=== PATIENT | female | born 1985 | race Caucasian/White ===

== ENCOUNTER 2017-08-25 21:16 | Emergency (ER) | payer MEDICAID ==
[~2017-08-25] VITALS: Ht 157.5 cm; Wt 81.8 kg
[2017-08-25 21:28] VITALS: BP 127/70; PULSE 103; RESP 16; TEMP 98.6; O2SAT 98
[2017-08-25 21:44] VITALS: BP 139/68; PULSE 89; RESP 18; TEMP 98.9; O2SAT 100
[2017-08-25] MEDS ORDERED: SODIUM CHLOR 0.9% 1000 ML INJ 1,000 ML IV SCH (23:18)
[2017-08-25 23:27] VITALS: O2SAT 100
[2017-08-25] MEDS ORDERED: SODIUM CHLORIDE 0.9% FLUSH 10 ML FLUSH IV FLUSH PRN (23:30)
[2017-08-25] MEDS ORDERED: ONDANSETRON HCL 4 MG/2 ML VIAL IVP ONE (23:30)
[2017-08-25] MEDS ORDERED: ALUMINUM/MAGNESIUM/SIMETH 30 ML CUP PO ONE (23:30)
[2017-08-25] MEDS ORDERED: KETOROLAC TROMETHAMINE 30 MG/ML (IVP) VIAL IVP ONE (23:30)
[2017-08-25] MEDS ORDERED: ACETAMINOPHEN 325 MG TAB PO ONE (23:30)
[2017-08-25] MEDS ORDERED: LIDOCAINE VISCOUS 2% SOLN 15 ML UDC PO ONE (23:30)
[2017-08-25 23:52] LABS: BILIRUBIN, URINE NEG (NEG); BLOOD, URINE NEG (NEG); GLUCOSE,URINE NEG (NEG); KETONE, URINE NEG (NEG); NITRITE,URINE NEG (NEG); SQUAMOUS EPITHELIAL CELL URINE 1 /hpf (0-5); URINE COLOR LIGHT-YELLOW (YELLW/STRAW); URINE LEUKOCYTE ESTERASE NEG (NEG)
[2017-08-25 23:53] LABS: AUTOMATED NEUTROPHIL # 6.6 TH/MM3 (1.8-7.7); BASOPHIL # 0.2 TH/MM3 (0-0.2); BASOPHIL % 1.1 % (0.0-2.0); EOSINOPHIL # 0.4 TH/MM3 (0-0.4); HEMATOCRIT 39.7 % (35.0-46.0); HEMOGLOBIN 13.1 GM/DL (11.6-15.3); LYMPH % 42.4 % (9.0-44.0); MEAN CELL VOLUME 86.2 FL (80.0-100.0); MEAN CORPUSCULAR HEMOGLOBIN 28.3 PG (27.0-34.0); MEAN CORPUSCULAR HGB CONC 32.9 % (32.0-36.0); MEAN PLATELET VOLUME 7.7 FL (7.0-11.0); MONO % 7.1 % (0.0-8.0); NEUT % 46.4 % (16.0-70.0); PLATELET COUNT 420 TH/MM3 (150-450); RED BLOOD COUNT 4.61 MIL/MM3 (4.00-5.30); RED CELL DISTRIBUTION WIDTH 12.8 % (11.6-17.2); WHITE BLOOD COUNT 14.2 TH/MM3 (4.0-11.0)
[2017-08-26 00:12] LABS: ALBUMIN 3.6 GM/DL (3.4-5.0); AST (GOT) 14 U/L (15-37); BLOOD UREA NITROGEN 7 MG/DL (7-18); CALCIUM 8.7 MG/DL (8.5-10.1); CHLORIDE 106 MEQ/L (98-107); CREATININE 0.91 MG/DL (0.50-1.00); GLOMERULAR FILTRATION RATE 72 ML/MIN (>89); GLUCOSE,RANDOM 85 MG/DL (74-106); SODIUM (NA) 141 MEQ/L (136-145)
[2017-08-26 00:16] LABS: ALKALINE PHOSPHATASE 74 U/L (45-117); ALT (GPT) 13 U/L (10-53); TOTAL BILIRUBIN ADULT 0.2 MG/DL (0.2-1.0); TOTAL PROTEIN 7.1 GM/DL (6.4-8.2)
--- NOTE | 2017-08-26 01:02 | PD ---
HPI Chief Complaint: Abdominal Pain Time Seen by Provider: 23:18 Travel History International Travel<30 days: No Contact w/Intl Traveler<30days: No History of Present Illness HPI 32-year-old female arrives with complaints of abdominal pain for the past 2-3 days. The pain quality is sharp. She also reports eating earlier today and vomiting twice afterwards. She reports pain to be 10/10. Patient denies any modifying factor for her pain and reports it to involve the entire abdomen including the left flank. Patient reports last menstruation was approximately 1 month prior. Patient reports she is 3 para 1 and new in town. She denies abnormal vaginal bleeding or discharge. No history of STD. PFSH Past Medical History Anxiety: Yes Depression: Yes Tetanus Vaccination: > 5 Years Influenza Vaccination: No ?: Unknown LMP: mid 07/2017 : 3 Para: 1 Miscarriage: 2 Past Surgical History Surgical History: No Previous Surgery Social History Alcohol Use: Yes (OCC) Tobacco Use: Yes Substance Use: No Allergies-Medications (Allergen,Severity, Reaction): Coded Allergies: Sulfa (Sulfonamide Antibiotics) (Verified Allergy, Intermediate, 08/27/17) cephalexin (Verified Allergy, Intermediate, 08/27/17) ciprofloxacin (Verified Allergy, Intermediate, 08/27/17) headache and hives sulfamethoxazole (Verified Allergy, Intermediate, 08/27/17) trimethoprim (Verified Allergy, Intermediate, 08/27/17) Reported Meds & Prescriptions Reported Meds & Active Scripts Active ( Vit-Ferrous Fumarate) 27 Mg Iron-1 Mg Tab 1 Tab PO DAILY Reglan (Metoclopramide HCl) 10 Mg Tab 10 Mg PO TIDAC PRN Review of Systems Except as stated in HPI: all other systems reviewed are Neg General / Constitutional: No: Fever Physical Exam Narrative GENERAL: 32-year-old female no acute distress pleasant well-nourished well- developed Vital Signs Date Time Temp Pulse Resp B/P (MAP) Pulse Ox O2 Delivery O2 Flow Rate FiO2 08/25/17 23:27 100 Room Air 08/25/17 23:12 18 08/25/17 21:44 98.9 89 18 139/68 (91) 100 SKIN: Warm and dry. HEAD: Atraumatic. Normocephalic. EYES: Pupils equal and round. No scleral icterus. No injection or drainage. ENT: No nasal bleeding or discharge. Mucous membranes pink and moist. NECK: Trachea midline. No JVD. CARDIOVASCULAR: Regular rate and rhythm. RESPIRATORY: No accessory muscle use. Clear to auscultation. Breath sounds equal bilaterally. GASTROINTESTINAL: Abdomen soft. There is no focus of tenderness. MUSCULOSKELETAL: Extremities without clubbing, cyanosis, or edema. No obvious deformities. NEUROLOGICAL: Awake and alert. No obvious cranial nerve deficits. Motor grossly within normal limits. Five out of 5 muscle strength in the arms and legs. Normal speech. PSYCHIATRIC: Appropriate mood and affect; insight and judgment normal. Data Data Last Documented VS Vital signs reviewed Orders Orders Complete Blood Count With Diff (08/25/17 23:18) Comprehensive Metabolic Panel (08/25/17:18) Lipase (08/25/17:) Urinalysis - C+S If Indicated (08/25/17:18) Iv Access Insert/Monitor (08/25/17 23:18) Ecg Monitoring (08/25/17:18) Oximetry (08/25/17:) Ondansetron Inj (Zofran Inj) (08/25/17 23:30) Sodium Chlor 0.9% 1000 Ml Inj (Ns 1000 M (08/25/17 23:18) Sodium Chloride 0.9% Flush (Ns Flush) (08/25/17 23:30) Ketorolac Inj (Toradol Inj) (08/25/17 23:30) Al-Mag Hy-Si 40-40-4 Mg/Ml Liq (Mag-Al P (08/25/17 23:30) Lidocaine 2% Viscous (Xylocaine 2% Visco (08/25/17 23:30) Ed Urine Pregnancytest Poc (08/25/17 23:18) Gc And Chlamydia Pcr (08/25/17 23:29) Wet Prep Profile (08/25/17 23:29) Complete Rh (08/25/17 23:29) Acetaminophen (Tylenol) (08/25/17 23:30) Beta Hcg (Quant/Titer) (08/25/17 23:28) Us Pelvis (Ques Pr/Ect)W Trans (08/26/17 ) Mri Abdomen W/O Contrast (08/26/17 ) Morphine Inj (Morphine Inj) (08/26/17 03:00) Ed Discharge Order (08/26/17 04:49) Labs Laboratory Tests Test 08/25/17 23:28 08/25/17 23:35 08/26/17 00:07 White Blood Count 14.2 TH/MM3 Red Blood Count 4.61 MIL/MM3 Hemoglobin 13.1 GM/DL Hematocrit 39.7 % Mean Corpuscular Volume 86.2 FL Mean Corpuscular Hemoglobin 28.3 PG Mean Corpuscular Hemoglobin Concent 32.9 % Red Cell Distribution Width 12.8 % Platelet Count 420 TH/MM3 Mean Platelet Volume 7.7 FL Neutrophils (%) (Auto) 46.4 % Lymphocytes (%) (Auto) 42.4 % Monocytes (%) (Auto) 7.1 % Eosinophils (%) (Auto) 3.0 % Basophils (%) (Auto) 1.1 % Neutrophils # (Auto) 6.6 TH/MM3 Lymphocytes # (Auto) 6.0 TH/MM3 Monocytes # (Auto) 1.0 TH/MM3 Eosinophils # (Auto) 0.4 TH/MM3 Basophils # (Auto) 0.2 TH/MM3 CBC Comment AUTO DIFF Differential Total Cells Counted 100 Neutrophils % (Manual) 48 % Band Neutrophils % 9 % Lymphocytes % 36 % Monocytes % 2 % Eosinophils % 5 % Neutrophils # (Manual) 8.1 TH/MM3 Differential Comment FINAL DIFF MANUAL Platelet Estimate NORMAL Platelet Morphology Comment NORMAL Red Cell Morphology Comment NORMAL Blood Urea Nitrogen 7 MG/DL Creatinine 0.91 MG/DL Random Glucose 85 MG/DL Total Protein 7.1 GM/DL Albumin 3.6 GM/DL Calcium Level 8.7 MG/DL Alkaline Phosphatase 74 U/L Aspartate Amino Transf (AST/SGOT) 14 U/L Alanine Aminotransferase (ALT/SGPT) 13 U/L Total Bilirubin 0.2 MG/DL Sodium Level 141 MEQ/L Potassium Level 3.5 MEQ/L Chloride Level 106 MEQ/L Carbon Dioxide Level 27.0 MEQ/L Anion Gap 8 MEQ/L Estimat Glomerular Filtration Rate 72 ML/MIN Lipase 174 U/L Human Chorionic Gonadotropin, Quant 207 MIU/ML Urine Color LIGHT-YELLOW Urine Turbidity CLEAR Urine pH 6.0 Urine Specific [place] 1.007 Urine Protein NEG mg/dL Urine Glucose (UA) NEG mg/dL Urine Ketones NEG mg/dL Urine Occult Blood NEG Urine Nitrite NEG Urine Bilirubin NEG Urine Urobilinogen LESS THAN 2.0 MG/DL Urine Leukocyte Esterase NEG Urine RBC LESS THAN 1 /hpf Urine WBC 1 /hpf Urine Squamous Epithelial Cells 1 /hpf Microscopic Urinalysis Comment CULT NOT INDICATED Clue Cells (Wet Prep) NONE SEEN Vaginal Trichomonas (Wet Prep) NONE SEEN Vaginal Yeast (Wet Prep) NONE SEEN Chlamydia trachomatis DNA (PCR) NOT DETECTED Neisseria gonorrhoeae DNA (PCR) NOT DETECTED MDM Medical Decision Making Medical Screen Exam Complete: Yes Emergency Medical Condition: Yes Medical Record Reviewed: Yes Differential Diagnosis IUP, UTI, ectopic , ov torsion, appendicitis, TOA, cervicitis, BV, Trichomoniasis, ov cyst, hernia, mittelschmerz, pain from menstruation Narrative Course Last Impressions Pelvis Ultrasound 08/26/17 0000 Signed Impressions: Service Date/Time: Saturday, August 26, 2017 00:09 - CONCLUSION: 1. Endometrial stripe is thickened but no gestational sac identified. 6 mm cystic area in the lower uterine segment could represent the aborting gestational sac although, with the extremely low quantitative beta hCG, an early still cannot be excluded. Recommend following serial hCG. 2. Ovaries are sonographically normal. Trace free fluid in the cul-de-sac. Solo Roberts MD Abdomen MRI 08/26/17 0000 Signed Impressions: Service Date/Time: Saturday, August 26, 2017 03:33 - CONCLUSION: Negative exam. No acute intraperitoneal or pelvic process to explain current clinical symptoms. Solo Roberts MD CBC & BMP Diagram 08/25/17 23:28 Total Protein 7.1, Albumin 3.6, Calcium Level 8.7, Alkaline Phosphatase 74, Aspartate Amino Transf (AST/SGOT) 14 L, Alanine Aminotransferase (ALT/SGPT) 13, Total Bilirubin 0.2 Urinalysis shows no UTI The wet prep is negative GC chlamydia is negative The patient has 9% bandemia which although could be nonspecific is concerning for infectious process. Given the presence of a elevated beta hCG MRI of the abdomen was obtained and it reveals no acute infectious/inflammatory process. Patient was observed ambulating to the bathroom a reassuring sign. Scrips as below. Return precautions discussed. Follow up with Dr Blackburn. Diagnosis Primary Impression: IUP (intrauterine ), incidental Additional Impression: Nausea & vomiting Qualified Codes: R11.2 - Nausea with vomiting, unspecified Referrals: Maximino Blackburn MD Med/Other Pt SpecificInfo: Prescription(s) given Scripts Vit-Ferrous Fumarate () 27 Mg Iron-1 Mg Tab 1 TAB PO DAILY for Nutritional Supplement, #30 TAB 2 Refills Prov: Alexi Bryson MD 08/26/17 Metoclopramide (Reglan) 10 Mg Tab 10 MG PO TIDAC Y for NAUSEA OR VOMITING, #10 TAB 0 Refills Prov: Alexi Bryson MD 08/26/17 Disposition: 01 DISCHARGE HOME Condition: Stable Alexi Bryson MD Aug 26, 2017 01:02
--- NOTE | 2017-08-26 01:22 | RADRPT ---
EXAM DATE/TIME: 08/26/2017 00:09 [facility] COMPARISON: No previous studies available for comparison. INDICATIONS : Pelvic pain. LAB(S): Beta-hC MEDICAL HISTORY : Depression. Anxiety. SURGICAL HISTORY : ENCOUNTER: Initial ACUITY: 3 days PAIN SCORE: 8/10 LOCATION: Bilateral pelvis MEASUREMENTS: UTERUS: 7.5 x 5.5 x 4.0 cm ENDOMETRIAL STRIPE: 14 mm RIGHT OVARY: 3.4 x 3.1 x 2.0 cm LEFT OVARY: 2.8 x 1.9 x 1.6 cm FREE FLUID: Yes trace in cul de sac FINDINGS: UTERUS: The myometrium has homogeneous echotexture without mass. Endometrial stripe is prominent but there i s no discrete gestational sac identified. A 6 mm cystic area in the lower uterine segment could repre sent the aborting gestational sac, however. No pole identified RIGHT OVARY: Ovary contains no mass or significant cystic lesion. 8mm cyst in the lower pole of the ovary. LEFT OVARY: Ovary contains no mass or significant cystic lesion. MISCELLANEOUS: Trace free fluid in the cul-de-sac. CONCLUSION: 1. Endometrial stripe is thickened but no gestational sac identified. 6 mm cystic area in the lower u terine segment could represent the aborting gestational sac although, with the extremely low quantita tive beta hCG, an early still cannot be excluded. Recommend following serial hCG. 2. Ovaries are sonographically normal. Trace free fluid in the cul-de-sac. Solo Roberts MD on August 26, 2017 at 1:16 Board Certified Radiologist. This report was verified electronically.
[2017-08-26 01:25] LABS: BANDS 9 % (0-6); LYMPHOCYTES 36 % (9-44); MONOCYTES 2 % (0-8); NEUTROPHIL # MANUAL DIFF 8.1 TH/MM3 (1.8-7.7); POLYS (SEG NEUTROPHILS) 48 % (16-70)
[2017-08-26] MEDS ORDERED: MORPHINE SULFATE 4 MG/ML INJ IV PUSH ONE (03:00)
--- NOTE | 2017-08-26 04:38 | RADRPT ---
EXAM DATE/TIME: 08/26/2017 03:33 [facility] COMPARISON: No previous studies available for comparison. INDICATIONS : Abdominal pain. Left side. MEDICAL HISTORY : None. SURGICAL HISTORY : None. ENCOUNTER: Subsequent ACUITY: 2 day PAIN SCORE: 4/10 LOCATION: Left abdomen TECHNIQUE: Multiplanar, multisequence magnetic resonance imaging of the abdomen was performed without contrast. FINDINGS: LIVER: Normal size with normal signal intensity. No lesion is identified. Portal vein is within normal limi ts. BILIARY: There is no intra- or extra-hepatic biliary ductal dilatation. Gallbladder contains no stones. SPLEEN: Within normal limits. PANCREAS: Within normal limits. ADRENALS: Within normal limits. KIDNEYS: Normal size and signal intensity. There is no hydronephrosis or mass. OTHER: Aorta is nonaneurysmal. There is no lymphadenopathy. Vermiform appendix is identified and is radiogra phically normal. CONCLUSION: Negative exam. No acute intraperitoneal or pelvic process to explain current clinical symptoms. Solo Roberts MD on August 26, 2017 at 4:32 Board Certified Radiologist. This report was verified electronically.
[2017-08-26] MEDS ORDERED: TRICTAB PO (04:48)
[2017-08-26] MEDS ORDERED: REGL10TA5 PO (04:48)
[2017-08-26 05:16] VITALS: BP 128/58; PULSE 78; RESP 18; O2SAT 100
== END 2017-08-26 05:17 | disposition home or self-care (01) ==
LOC: NEPC 21:16
DX: O21.9 Vomiting of pregnancy, unspecified (principal); R10.9 Unspecified abdominal pain; O99.341 Other mental disorders complicating pregnancy, first trimester; F41.9 Anxiety disorder, unspecified; F32.9 Major depressive disorder, single episode, unspecified; O99.331 Smoking (tobacco) complicating pregnancy, first trimester; F17.210 Nicotine dependence, cigarettes, uncomplicated; Z79.899 Other long term (current) drug therapy; Z34.91 Encounter for supervision of normal pregnancy, unspecified, first trimester
CPT/HCPCS: 74181; 76700; 76817; 80053; 81001; 83690; 84702; 84703; 85007; 85027; 86901; 87210; 87491; 87591; 96374; 96375; 99285; J2270; J2405; J7030

== ENCOUNTER 2017-08-27 20:42 | Emergency (ER) | payer MEDICAID ==
[~2017-08-27] VITALS: Ht 162.6 cm; Wt 79.0 kg
[~2017-08-27 20:42] MED LIST: REGL10TA5 PO; TRICTAB PO
[2017-08-27 21:33] VITALS: BP 123/60; PULSE 68; RESP 16; TEMP 99.2; O2SAT 99
--- NOTE | 2017-08-27 23:20 | PD ---
HPI Chief Complaint: Medical Clearance Time Seen by Provider: 22:14 Travel History International Travel<30 days: No Contact w/Intl Traveler<30days: No Traveled to known affect area: No History of Present Illness HPI This is a 32-year-old female who was called back to our emergency department today for reevaluation of early . The patient presented to the emergency department 2 days ago complaining of abdominal pain, and incidentally her beta hCG was elevated at 203. Because of this and because she was complaining of abdominal pain, an MRI of her abdomen was performed at that time that showed no acute abnormality. She had a pelvic ultrasound also at that time that showed thickened endometrial stripe and a 6 mm cystic area in the lower uterine segment that could represent an boarding gestational sac although with extremely low quantitative beta-hCG, and early still cannot be excluded. The ovaries on this ultrasound were sonographically normal. Patient is still having lower abdominal/suprapubic discomfort. 2 days ago she had a wet prep that was completely negative, GC and chlamydia were tested and were negative, and her UA was also within normal limits. PFSH Past Medical History Anxiety: Yes Depression: Yes Immunizations Current: Yes Tetanus Vaccination: Unknown Influenza Vaccination: No ?: : 3 Para: 1 Miscarriage: 2 Social History Alcohol Use: Yes (OCC) Tobacco Use: Yes Substance Use: No Allergies-Medications (Allergen,Severity, Reaction): Coded Allergies: Sulfa (Sulfonamide Antibiotics) (Verified Allergy, Intermediate, 08/27/17) cephalexin (Verified Allergy, Intermediate, 08/27/17) ciprofloxacin (Verified Allergy, Intermediate, 08/27/17) headache and hives sulfamethoxazole (Verified Allergy, Intermediate, 08/27/17) trimethoprim (Verified Allergy, Intermediate, 08/27/17) Reported Meds & Prescriptions Reported Meds & Active Scripts Active ( Vit-Ferrous Fumarate) 27 Mg Iron-1 Mg Tab 1 Tab PO DAILY Reglan (Metoclopramide HCl) 10 Mg Tab 10 Mg PO TIDAC PRN Review of Systems Except as stated in HPI: all other systems reviewed are Neg Physical Exam Narrative GENERAL: Well-developed, well-nourished, comfortable, no apparent distress. SKIN: Focused skin assessment warm/dry. HEAD: Atraumatic. Normocephalic. EYES: Pupils equal and round. No scleral icterus. No injection or drainage. ENT: Mucous membranes pink and moist. NECK: Trachea midline. No JVD. CARDIOVASCULAR: Regular rate and rhythm. RESPIRATORY: No accessory muscle use. Clear to auscultation. Breath sounds equal bilaterally. GASTROINTESTINAL: Abdomen soft, nondistended. Mild suprapubic tenderness without peritoneal signs. Normal bowel sounds. MUSCULOSKELETAL: No obvious deformities. No clubbing. No cyanosis. No edema. NEUROLOGICAL: Awake and alert. No obvious cranial nerve deficits. Motor grossly within normal limits. Normal speech. PSYCHIATRIC: Appropriate mood and affect; insight and judgment normal. Data Data Last Documented VS Vital Signs Date Time Temp Pulse Resp B/P (MAP) Pulse Ox O2 Delivery O2 Flow Rate FiO2 08/27/17 21:33 99.2 68 16 123/60 (81) 99 Orders Orders Beta Hcg (Quant/Titer) (08/27/17 21:04) Us Pelvis (Ques Preg/Ectopic) (08/27/17 ) Labs Laboratory Tests Test 08/27/17 22:00 Human Chorionic Gonadotropin, Quant 552 MIU/ML [facility] Medical Decision Making Medical Screen Exam Complete: Yes Emergency Medical Condition: Yes Differential Diagnosis , ectopic , spontaneous Narrative Course Patient's beta-hCG today is 552. 2 days ago it was 207. It is doubling appropriately. She is not having any vaginal bleeding. At this point she will be discharged home and advised to have her beta hCG repeated in about 3 days. There are no peritoneal signs on abdominal exam. She was advised on when to return to the emergency department sooner. She verbalizes understanding and agreement with plan. Diagnosis Primary Impression: Early stage of Referrals: [facility] 3 days Additional Instructions: Follow-up with an AC/DC REWINDER physician this week. Have your beta hCG repeated in 3 days. Return to the emergency department for worsening symptoms or any other concerns. Disposition: DISCHARGE HOME Condition: Stable Justin Mckeon MD Aug 27, 2017 23:20
== END 2017-08-28 00:11 | disposition home or self-care (01) ==
LOC: NEPD 20:42
DX: O26.891 Other specified pregnancy related conditions, first trimester (principal); R10.9 Unspecified abdominal pain; O99.331 Smoking (tobacco) complicating pregnancy, first trimester; O99.341 Other mental disorders complicating pregnancy, first trimester; F41.9 Anxiety disorder, unspecified; F32.9 Major depressive disorder, single episode, unspecified
CPT/HCPCS: 84702; 99283

== ENCOUNTER 2017-08-30 12:21 | Emergency (ER) | payer MEDICAID ==
[2017-08-30 13:01] VITALS: BP 120/75; PULSE 79; RESP 14; TEMP 99.2; O2SAT 99
--- NOTE | 2017-08-30 15:36 | PD ---
HPI Chief Complaint: Abnormal Results Time Seen by Provider: 14:58 Travel History International Travel<30 days: No Contact w/Intl Traveler<30days: No Traveled to known affect area: No History of Present Illness HPI 32-year-old female presents to the ED for repeat hCG. Patient was seen on 08/26 and ultrasound of the pelvis revealed a questionable early . She had hCG drawn on 08/27, level was 552. On presentation she complains of cramping left back pain. She denies vaginal bleeding, abdominal pain, dysuria, hematuria. She has no other complaints. PFSH Past Medical History Anxiety: Yes Depression: Yes Immunizations Current: Yes ?: : 3 Para: 1 Miscarriage: 2 Social History Alcohol Use: Yes (OCC) Tobacco Use: Yes Substance Use: No Allergies-Medications (Allergen,Severity, Reaction): Coded Allergies: Sulfa (Sulfonamide Antibiotics) (Verified Allergy, Intermediate, 08/27/17) cephalexin (Verified Allergy, Intermediate, 08/27/17) ciprofloxacin (Verified Allergy, Intermediate, 08/27/17) headache and hives sulfamethoxazole (Verified Allergy, Intermediate, 08/27/17) trimethoprim (Verified Allergy, Intermediate, 08/27/17) Reported Meds & Prescriptions Reported Meds & Active Scripts Active ( Vit-Ferrous Fumarate) 27 Mg Iron-1 Mg Tab 1 Tab PO DAILY Reglan (Metoclopramide HCl) 10 Mg Tab 10 Mg PO TIDAC PRN Review of Systems Except as stated in HPI: all other systems reviewed are Neg Physical Exam Narrative GENERAL: Well-nourished, well-developed female in no acute distress.. SKIN: Focused skin assessment warm/dry. HEAD: Normocephalic. EYES: No scleral icterus. No injection or drainage. NECK: Supple, trachea midline. No JVD or lymphadenopathy. CARDIOVASCULAR: Regular rate and rhythm without murmurs, gallops, or rubs. RESPIRATORY: Breath sounds equal bilaterally. No accessory muscle use. GASTROINTESTINAL: Abdomen soft, non-tender, nondistended. Active bowel sounds. MUSCULOSKELETAL: No cyanosis, or edema. BACK: Nontender without obvious deformity. No CVA tenderness. Data Data Last Documented VS Vital Signs Date Time Temp Pulse Resp B/P (MAP) Pulse Ox O2 Delivery O2 Flow Rate FiO2 08/30/17 13:01 99.2 79 14 120/75 (90 99 Orders Orders Beta Hcg (Quant/Titer) (08/30/17 13:11) Ed Discharge Order (08/30/17 16:07) Labs Laboratory Tests Test 08/30/17 14:12 Human Chorionic Gonadotropin, Quant 1368 MIU/ML MDM Medical Decision Making Medical Screen Exam Complete: Yes Emergency Medical Condition: Yes Differential Diagnosis Early versus miscarriage versus ECG recheck versus other Narrative Course 32-year-old female presents to the ED for repeat hCG. Patient was seen on 08/26 and ultrasound of the pelvis revealed a questionable early . She had hCG drawn on 08/27, level was 552. On presentation she complains of cramping left back pain. She denies vaginal bleeding, abdominal pain, dysuria, hematuria. Vitals reviewed. Physical exam is reassuring. ECG to 1368. UA on 08/27 without signs of infection. This is early . Patient's instructed to follow-up with the seam rubbing machine operator. She is stable and discharged home. Diagnosis Primary Impression: First trimester Referrals: Furnace Operator Additional Instructions: Beta hCG is 1368 today. Begin taking vitamins. Help with the seam rubbing machine operator to establish care and determine due to date. Return to the ED for any urgent or emergent medical condition. Disposition: 01 DISCHARGE HOME Condition: Stable Roselyn Frost Aug 30, 2017 15:36
--- NOTE | 2017-08-30 16:39 | ED.CB ---
ED Call Back Communication Called patient to talk with patient to review her symptoms and prior ultrasound as she had left when I was reviewing her chart. Her level is going up on her ultrasound 4 days ago showed likely beginnings of early . I recommended that she get repeat ultrasound imaging and closely to confirm progression of her . I offered her to return to the ER for additional testing given she said over the phone that she still having urinary symptoms and her temp here was 99.2. She states she wants to just try to follow-up outpatient and if she gets worse she will come back. Sadie Mccullough MD Aug 30, 2017 16:39
== END 2017-08-30 16:14 | disposition home or self-care (01) ==
LOC: NED 12:21 → NEPK 16:14
DX: O26.891 Other specified pregnancy related conditions, first trimester (principal); M54.9 Dorsalgia, unspecified; Z3A.00 Weeks of gestation of pregnancy not specified
CPT/HCPCS: 84702; 99281

== ENCOUNTER 2017-09-19 16:11 | Emergency (ER) | payer MEDICAID, OTHER ==
[~2017-09-19] VITALS: Ht 157.5 cm; Wt 83.2 kg
[2017-09-19 21:43] LABS: BACTERIA, URINE RARE /hpf; BILIRUBIN, URINE NEG (NEG); BLOOD, URINE NEG (NEG); GLUCOSE,URINE NEG (NEG); KETONE, URINE NEG (NEG); NITRITE,URINE NEG (NEG); PH, URINE 6.5 (5.0-8.5); SQUAMOUS EPITHELIAL CELL URINE 3 /hpf (0-5); URINE COLOR YELLOW (YELLW/STRAW); URINE LEUKOCYTE ESTERASE SMALL (NEG)
--- NOTE | 2017-09-19 22:00 | PD ---
HPI Chief Complaint: Flank/Kidney Pain Time Seen by Provider: 21:46 Travel History International Travel<30 days: No Contact w/Intl Traveler<30days: No Traveled to known affect area: No History of Present Illness HPI This is a 32-year-old who has an estimated gestational age of 7 weeks. She presents for evaluation of left flank and left lower quadrant abdominal pain. She reports that for the past 1.5 week she has had pain in her left flank region. She was seen at an outside emergency room 1 week ago where she was diagnosed with UTI and prescribed Macrobid. She has completed the Macrobid and has persistent pain. She reports that now the pain radiates in the left lower quadrant. Pain is sharp and constant. She has had some associated dysuria. She reports that today she developed some yellow vaginal discharge. She has had nausea. Denies vomiting, vaginal bleeding, fevers. She has not yet established care with an SHOPPING CENTRE MANAGER. She reports that she is sexually active with one long-term partner. She has no other complaints at this time. [facility] Past Medical History Anxiety: Yes Depression: Yes Immunizations Current: Yes ?: : 3 Para: 1 Miscarriage: 2 Social History Alcohol Use: Yes (OCC) Tobacco Use: No Substance Use: No Allergies-Medications (Allergen,Severity, Reaction): Coded Allergies: Sulfa (Sulfonamide Antibiotics) (Verified Allergy, Intermediate, 09/19/17) cephalexin (Verified Allergy, Intermediate, 09/19/17) ciprofloxacin (Verified Allergy, Intermediate, 09/19/17) headache and hives sulfamethoxazole (Verified Allergy, Intermediate, 09/19/17) trimethoprim (Verified Allergy, Intermediate, 09/19/17) Reported Meds & Prescriptions Reported Meds & Active Scripts Active Lidocaine Patch 12 HR (Lidocaine) 5 % Patch 1 Patch TOPICAL DAILY Remove patch after 12 hours Macrobid (Nitrofurantoin Monohydrate Macrocrystals) 100 Mg Capsule 100 Mg PO BID 7 Days ( Vit-Ferrous Fumarate) 27 Mg Iron-1 Mg Tab 1 Tab PO DAILY Review of Systems Except as stated in HPI: all other systems reviewed are Neg Physical Exam Narrative GENERAL: Well-developed well-nourished female who appears uncomfortable on initial examination. SKIN: Warm and dry. HEAD: Atraumatic. Normocephalic. EYES: Pupils equal and round. No scleral icterus. No injection or drainage. ENT: No nasal bleeding or discharge. Mucous membranes pink and moist. NECK: Trachea midline. No JVD. CARDIOVASCULAR: Regular rate and rhythm. No murmur appreciated. RESPIRATORY: No accessory muscle use. Clear to auscultation. Breath sounds equal bilaterally. GASTROINTESTINAL: Abdomen soft, mild left lower quadrant tenderness without guarding. Tender to palpation left lower back region. Pelvic examination in the presence of a female nurse reveals small amount of yellow discharge in the vaginal canal. There is no cervical motion tenderness. There is mild left adnexal tenderness. MUSCULOSKELETAL: No obvious deformities. No clubbing. No cyanosis. No edema. NEUROLOGICAL: Awake and alert. No obvious cranial nerve deficits. Motor grossly within normal limits. Normal speech. Data Data Last Documented VS Vital Signs Date Time Temp Pulse Resp B/P (MAP) Pulse Ox O2 Delivery O2 Flow Rate FiO2 09/19/17 22:24 98.5 84 18 118/64 (82) 99 Room Air Orders Orders Comprehensive Metabolic Panel (09/19/17 17:05) Urinalysis - C+S If Indicated (09/19/17 17:05) Ed Urine Pregnancytest Poc (09/19/17 17:05) Beta Hcg (Quant/Titer) (09/19/17 17:05) Complete Blood Count With Diff (09/19/17 21:52) Gc And Chlamydia Pcr (09/19/17 21:55) Wet Prep Profile (09/19/17 21:55) Acetaminophen (Tylenol) (09/19/17 22:45) Ed Discharge Order (09/19/17 22:52) Lidocaine 5% Patch.12 Hr (Lidoderm 5% Pa (09/19/17 23:00) Labs Laboratory Tests Test 09/19/17 19:10 09/19/17 21:50 09/19/17 22:35 Urine Color YELLOW Urine Turbidity CLEAR Urine pH 6.5 Urine Specific [place] 1.006 Urine Protein NEG mg/dL Urine Glucose (UA) NEG mg/dL Urine Ketones NEG mg/dL Urine Occult Blood NEG Urine Nitrite NEG Urine Bilirubin NEG Urine Urobilinogen LESS THAN 2.0 MG/DL Urine Leukocyte Esterase SMALL Urine RBC 1 /hpf Urine WBC 2 /hpf Urine Squamous Epithelial Cells 3 /hpf Urine Bacteria RARE /hpf Microscopic Urinalysis Comment CULT NOT INDICATED White Blood Count 16.2 TH/MM3 Red Blood Count 4.31 MIL/MM3 Hemoglobin 12.3 GM/DL Hematocrit 37.2 % Mean Corpuscular Volume 86.2 FL Mean Corpuscular Hemoglobin 28.5 PG Mean Corpuscular Hemoglobin Concent 33.0 % Red Cell Distribution Width 12.6 % Platelet Count 384 TH/MM3 Mean Platelet Volume 7.8 FL Neutrophils (%) (Auto) 59.2 % Lymphocytes (%) (Auto) 31.0 % Monocytes (%) (Auto) 6.6 % Eosinophils (%) (Auto) 2.3 % Basophils (%) (Auto) 0.9 % Neutrophils # (Auto) 9.6 TH/MM3 Lymphocytes # (Auto) 5.0 TH/MM3 Monocytes # (Auto) 1.1 TH/MM3 Eosinophils # (Auto) 0.4 TH/MM3 Basophils # (Auto) 0.1 TH/MM3 CBC Comment DIFF FINAL Differential Comment Blood Urea Nitrogen 5 MG/DL Creatinine 0.65 MG/DL Random Glucose 82 MG/DL Total Protein 7.1 GM/DL Albumin 3.5 GM/DL Calcium Level 8.8 MG/DL Alkaline Phosphatase 63 U/L Aspartate Amino Transf (AST/SGOT) 12 U/L Alanine Aminotransferase (ALT/SGPT) 16 U/L Total Bilirubin 0.6 MG/DL Sodium Level 137 MEQ/L Potassium Level 3.9 MEQ/L Chloride Level 104 MEQ/L Carbon Dioxide Level 25.6 MEQ/L Anion Gap 7 MEQ/L Estimat Glomerular Filtration Rate 106 ML/MIN Human Chorionic Gonadotropin, Quant 06914 MIU/ML Clue Cells (Wet Prep) NONE SEEN Vaginal Trichomonas (Wet Prep) NONE SEEN Vaginal Yeast (Wet Prep) NONE SEEN MDM Medical Decision Making Medical Screen Exam Complete: Yes Emergency Medical Condition: Yes Medical Record Reviewed: Yes Differential Diagnosis Cystitis, pyelonephritis, ureteral stone, pelvic inflammatory disease, intrauterine , ectopic , ovarian torsion Narrative Course I reviewed this patient's records. She was seen here on August 25 complaining of abdominal pain. She had a normal MRI of the abdomen and pelvis at that time. She had a pelvic ultrasound which revealed endometrial stripe thickening but no gestational sac. There was a 6 mm cystic area in the lower uterine segment. A wet prep and GC probe performed that day were negative. She was seen here again on August 27 as well as August 30 with uptrending beta-hCG is during those visits. She reports that she had an ultrasound last week at [facility] which showed a normal intrauterine . CBC today reveals a WBC count of 16.2 with no left shift. Her CMP reveals a BUN of 5, AST 12. Her quantitative beta-hCG is 87,972. Her urinalysis reveals rare bacteria and small leukocytes. Her wet prep is normal. She was given Tylenol for her pain. Her pelvic examination revealed no cervical motion tenderness, trace amount of yellow discharge. At this point in time the plan would be to discharge her and have her follow-up with [facility]PING CENTRE MANAGER. She will be treated for bacteriuria in . She is allergic to numerous antibiotics. She will be given Macrobid which is category B. She will be given a prescription for Lidoderm patches for her lower back pain. Diagnosis Primary Impression: Additional Impressions: Bacteriuria during Back pain Referrals: [facility] Additional Instructions: Establish care with an fiber optics supervisor. Medication as prescribed. Tylenol for pain. Return for any emergent medical conditions. Med/Other Pt SpecificInfo: Prescription(s) given Scripts Lidocaine Patch 12 HR (Lidocaine Patch 12 HR) 5 % Patch 1 PATCH TOPICAL DAILY for Pain Management, #1 BOX 0 Refills Remove patch after 12 hours Prov: Sabrina Smith MD 09/19/17 Nitrofurantoin Monohydrate Macrocrystals (Macrobid) 100 Mg Capsule 100 MG PO BID for Infection for 7 Days, #14 CAP 0 Refills Prov: Sabrina Smith MD 09/19/17 Disposition: 01 DISCHARGE HOME Condition: Stable Jordin Jacob Sep 19, 2017 22:00
[2017-09-19 22:08] LABS: AUTOMATED NEUTROPHIL # 9.6 TH/MM3 (1.8-7.7); BASOPHIL # 0.1 TH/MM3 (0-0.2); BASOPHIL % 0.9 % (0.0-2.0); EOSINOPHIL # 0.4 TH/MM3 (0-0.4); EOSINOPHIL % 2.3 % (0.0-4.0); HEMATOCRIT 37.2 % (35.0-46.0); HEMOGLOBIN 12.3 GM/DL (11.6-15.3); MEAN CELL VOLUME 86.2 FL (80.0-100.0); MEAN CORPUSCULAR HEMOGLOBIN 28.5 PG (27.0-34.0); MEAN PLATELET VOLUME 7.8 FL (7.0-11.0); MONO % 6.6 % (0.0-8.0); MONOCYTE # 1.1 TH/MM3 (0-0.9); NEUT % 59.2 % (16.0-70.0); PLATELET COUNT 384 TH/MM3 (150-450); RED BLOOD COUNT 4.31 MIL/MM3 (4.00-5.30); RED CELL DISTRIBUTION WIDTH 12.6 % (11.6-17.2); WHITE BLOOD COUNT 16.2 TH/MM3 (4.0-11.0)
[2017-09-19 22:16] LABS: ALBUMIN 3.5 GM/DL (3.4-5.0); ALT (GPT) 16 U/L (10-53); AST (GOT) 12 U/L (15-37); BICARBONATE 25.6 MEQ/L (21.0-32.0); BLOOD UREA NITROGEN 5 MG/DL (7-18); CALCIUM 8.8 MG/DL (8.5-10.1); CHLORIDE 104 MEQ/L (98-107); CREATININE 0.65 MG/DL (0.50-1.00); GLOMERULAR FILTRATION RATE 106 ML/MIN (>89); GLUCOSE,RANDOM 82 MG/DL (74-106); SODIUM (NA) 137 MEQ/L (136-145)
[2017-09-19 22:24] VITALS: BP 118/64; PULSE 84; RESP 18; TEMP 98.5; O2SAT 99
[2017-09-19 22:33] LABS: ALKALINE PHOSPHATASE 63 U/L (45-117); TOTAL BILIRUBIN ADULT 0.6 MG/DL (0.2-1.0); TOTAL PROTEIN 7.1 GM/DL (6.4-8.2)
[2017-09-19] MEDS ORDERED: ACETAMINOPHEN 325 MG TAB PO ONE (22:45)
[2017-09-19] MEDS ORDERED: MACR100C2 PO (22:49)
[2017-09-19] MEDS ORDERED: LIDO1PAD52 TOPICAL (22:50)
[2017-09-19] MEDS ORDERED: LIDOCAINE HCL 5% PATCH T-DERMAL ONE (23:00)
== END 2017-09-19 23:31 | disposition home or self-care (01) ==
LOC: NEPC 16:11
DX: O99.89 Other specified diseases and conditions complicating pregnancy, childbirth and the puerperium (principal); M54.5 Low back pain; R82.71 Bacteriuria; Z3A.01 Less than 8 weeks gestation of pregnancy
CPT/HCPCS: 80053; 81001; 84702; 84703; 85025; 87210; 87491; 87591; 99283

== ENCOUNTER 2018-04-11 12:15 | Inpatient (IN) ==
[2018-04-11 14:14] LABS: Hematocrit 30.6 % (35.0-46.0); Hemoglobin 10.3 gm/dL (11.6-15.3); Mean Corpuscular HGB Conc 33.6 % (32.0-36.0); Mean Corpuscular Hemoglobin 29.4 pg (27.0-34.0); Mean Corpuscular Volume 87.5 fL (80.0-100.0); Mean Platelet Volume 8.8 fL (7.0-11.0); Platelet Count 252 th/mm3 (150-450); Red Blood Count 3.49 mil/mm3 (4.00-5.30); Red Cell Distribution Width 13.2 % (11.6-17.2); White Blood Count 9.6 th/mm3 (4.0-11.0)
[2018-04-11 14:25] LABS: Bacteria,Urine Occasional /hpf; Bilirubin,Urine Negative (Negative); Clarity,Urine Clear (Clear); Color,Urine Straw (Yellw/Straw); Glucose,Urine (UA) Negative (Negative); Leukocyte Esterase,Urine Negative (Negative); Mucus,Urine Few /lpf (Occasional); Nitrite,Urine Negative (Negative); Specific Gravity,Urine 1.003 (1.002-1.035); Squamous Epithelial Cell,Urine 1 /hpf (0-5)
--- NOTE | 2018-04-11 14:30 | ED ---
History of Present Illness Primary Care Physician: No Primary Care Physician Chief Complaint: Elevated blood pressures History of Present Illness: 32-year-old , IUP at 37.0 care complicated by placenta previa, history of CVA during prior , numerous allergies, anxiety, depression, arthritis The patient presents from the office stating that she is being sent over by Dr. Nabor Silva for a delivery due to her elevated blood pressures. She reports that in the office her blood pressure is 146/103 and 151/84. She was evaluated last night and had a blood pressure 145/90. The patient reports that she has had an intermittent headache for 3 days that was relieved with morphine that she received last night. She reports that she has some intermittent visual spots and has some sharp stabbing pain in the left upper quadrant and right lower quadrant. There is no epigastric pain or right upper quadrant pain. She reports good movement. She denies any leaking of fluid or vaginal bleeding. She denies any contractions or painful cramping. She reports that her legs are swollen and that is causing her pain. She reports that she has seen high risk doctor in [facility] but not had any recent high risk care and does not recall any recommendations for the history of her CVA. 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, menarche at age 9, menses occur monthly and last about 7 days PMH: Anxiety, depression, arthritis Family history: HTN, DM, CAD, MD PSH: Denies SH: Patient denies at this time however review of her records indicates that she does have a history of tobacco use Meds/allergies: As per EMR Review of Systems All other systems reviewed negative except as stated in HPI PMFSH - History History Provided By: Patient - Medical History Medical History: Medical History (Last Updated 04/01/18 @ 00:50 by Alejandro Duffy MD) H/O wisdom tooth extraction - Tobacco History Second Hand Smoke Exposure: No Smoking Status: Current every day smoker Tobacco Type: Cigarettes Cigarettes Per Day: 1 - Alcohol History How Often Do You Have a Drink Containing Alcohol: Never - Substance Use History Substance History: No History of Abuse - Travel History History of Recent Travel: No Medications and Allergies Active Medications: Active Medications Sodium Chloride (Ns Flush) 2 ml IV.FLUSH BID LYUDMILA Sodium Chloride (Ns Flush) 2 ml IV.FLUSH PRN PRN PRN Reason: FLUSH AFTER USING IV ACCESS Allergies Allergy/AdvReac Type Severity Reaction Status Date / Time cephalexin Allergy Intermediate Hives Verified 03/31/18 23:04 ciprofloxacin Allergy Intermediate Hives Verified 03/31/18 23:04 Sulfa (Sulfonamide Allergy Intermediate Hives Verified 03/31/18 23:04 Antibiotics) sulfamethoxazole Allergy Intermediate Hives Verified 03/31/18 23:04 trimethoprim Allergy Intermediate Hives Verified 03/31/18 23:04 Home Medications Medication Instructions Recorded Confirmed Type vit,[id number] 1 tab PO DAILY 03/08/18 03/14/18 History [PNV 29-1] Exam Vital signs: Vital Signs 04/11/18 13:04 04/11/18 13:06 04/11/18 13:08 Temperature 98.0 F Pulse Rate 67 Respiratory Rate 18 Blood Pressure 135/77 04/11/18 13:16 04/11/18 13:30 04/11/18 13:46 Temperature Pulse Rate 59 L 72 71 Respiratory Rate Blood Pressure 139/72 140/83 124/64 Intake & Output 04/10/18 04/11/18 04/11/18 18:59 06:59 18:59 Weight 83.915 kg Narrative: GENERAL: Well-nourished, well-developed patient. SKIN: Warm and dry. No rashes, lesions, masses noted HEAD: Normocephalic and atraumatic. EYES: No scleral icterus. No injection or drainage. ENT: No nasal drainage noted. Mucous membranes pink. Airway patent. NECK: Supple, trachea midline. No JVD. CARDIOVASCULAR: Regular rate and rhythm without murmurs, gallops, or rubs. RESPIRATORY: Breath sounds equal bilaterally. No accessory muscle use. BREASTS: Deferred ABDOMEN/GI: Abdomen soft, non-tender, bowel sounds present, no rebound, no guarding Gravid GENITOURINARY: Deferred FHT's: heart tones are in the 130s with moderate long-term variability, good accelerations, no decelerations noted. This reactive NST category 1 heart rate tracing. EXTREMITIES: No cyanosis or edema. BACK: Nontender without obvious deformity. NEUROLOGICAL/psychiatric: Awake and alert x3. Grossly normal memory/affect. Grossly normal range of motion. Cranial nerves II through XII grossly intact. Motor and sensory grossly within normal limits. Five out of 5 muscle strength in all muscle groups. Normal speech. Results - Labs CBC & Chem 7: 04/11/18 13:40 04/11/18 13:40 Labs: Laboratory Results - last 24 hr 04/11/18 13:40 WBC 9.6 RBC 3.49 L Hgb 10.3 L Hct 30.6 L MCV 87.5 MCH 29.4 MCHC 33.6 RDW 13.2 Plt Count 252 MPV 8.8 Assessment and Plan - Plan Assessment/plan: 1. IUP at 37.0 2. Elevated blood pressure: The patient had elevated blood pressure in the office however has had most of her blood pressures here in the normal range. We discussed the evaluation for preeclampsia. 3. Placenta previa 4. Anxiety/depression 5. well-being: Reassuring testing with reactive NST and category 1 heart rate tracing, will continue monitoring 6. History of tobacco use 7. History of CVA with prior per patient report, [facility] records are unavailable 8. History of arthritis Discharge Plan - Physicians Team ED Provider: Norma Salinas Primary Care Provider: Primary Care Milly Price - Rxs /Orders / Referrals /Forms Prescriptions: No Action vit,[id number] [PNV 29-1] 29 mg iron- 1 mg Tablet 1 tab PO DAILY - Discharge Instructions Print Language: Turkmen
[2018-04-11 14:31] LABS: Albumin 2.2 g/dL (3.4-5.0); Anion Gap 10 meq/L (5-15); Aspartate Aminotransferase 19 U/L (15-37); Blood Urea Nitrogen 3 mg/dL (7-18); Calcium 8.1 mg/dL (8.5-10.1); Carbon Dioxide 24.5 meq/L (21.0-32.0); Chloride 107 meq/L (98-107); Glomerular Filtration Rate Greater Than 89 mL/min (>89); Glucose,Random 62 mg/dL (74-106); Sodium 141 meq/L (136-145); Uric Acid 3.3 mg/dl (2.6-6.0)
[2018-04-11 14:33] LABS: Alanine Aminotransferase 15 U/L (10-53)
[2018-04-11 14:33] LABS: Protein/Creatinine Ratio,Urine 0.54 (0.00-0.14)
[2018-04-11 14:35] LABS: Alkaline Phosphatase 130 U/L (45-117); Total Protein 5.6 g/dL (6.4-8.2)
[2018-04-11 14:36] LABS: Potassium 2.9 meq/L (3.5-5.1)
[2018-04-11] MEDS ORDERED: Butalbital/APAP/Caff 50/325/40 MG Tablet PO PRN (16:00)
[2018-04-11 16:15] LABS: Amphetamine Urine With Conf Neg (Neg); Benzodiazepine Urine With Conf Neg (Neg)
[2018-04-11] MEDS ORDERED: Zolpidem Tartrate 5 MG Tablet PO ONE (20:00)
[2018-04-12 06:21] LABS: Anion Gap 8 meq/L (5-15); Blood Urea Nitrogen 3 mg/dL (7-18); Calcium 7.8 mg/dL (8.5-10.1); Carbon Dioxide 24.1 meq/L (21.0-32.0); Chloride 111 meq/L (98-107); Glomerular Filtration Rate Greater Than 89 mL/min (>89); Glucose,Random 69 mg/dL (74-106); Potassium 3.2 meq/L (3.5-5.1); Sodium 143 meq/L (136-145)
[2018-04-12] MEDS ORDERED: Morphine Sulfate PF Inj 5 MG/10 ML Ampul ONE (11:36)
--- NOTE | 2018-04-12 12:24 | P.HPOB ---
OB - ED Note Patient Name: Devan Duggan Date of : 87 Patient Status: Observation Attending Provider: Norma Salinas Date: 04/11/18 14:21 Initialization Date: 04/11/18 14:21 History of Present Illness Primary Care Physician: No Primary Care Physician Chief Complaint: Elevated blood pressures History of Present Illness: 32-year-old , IUP at 37.0 care complicated by placenta previa, history of CVA during prior , numerous allergies, anxiety, depression, arthritis The patient presents from the office stating that she is being sent over by Dr. Nabor Silva for a delivery due to her elevated blood pressures. She reports that in the office her blood pressure is 146/103 and 151/84. She was evaluated last night and had a blood pressure 145/90. The patient reports that she has had an intermittent headache for 3 days that was relieved with morphine that she received last night. She reports that she has some intermittent visual spots and has some sharp stabbing pain in the left upper quadrant and right lower quadrant. There is no epigastric pain or right upper quadrant pain. She reports good movement. She denies any leaking of fluid or vaginal bleeding. She denies any contractions or painful cramping. She reports that her legs are swollen and that is causing her pain. She reports that she has seen high risk doctor in [facility] but not had any recent high risk care and does not recall any recommendations for the history of her CVA. 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 at age 9, menses occur monthly and last about 7 days PMH: Anxiety, depression, arthritis Family history: HTN, DM, CAD, ID PSH: Denies SH: Patient denies at this time however review of her records indicates that she does have a history of tobacco use Meds/allergies: As per EMR Review of Systems All other systems reviewed negative except as stated in HPI PMFSH - History History Provided By: Patient - Medical History Medical History: Medical History (Last Updated 04/01/18 @ 00:50 by Alejandro Duffy MD) H/O wisdom tooth extraction - Tobacco History Second Hand Smoke Exposure: No Smoking Status: Current every day smoker Tobacco Type: Cigarettes Cigarettes Per Day: 1 - Alcohol History How Often Do You Have a Drink Containing Alcohol: Never - Substance Use History Substance History: No History of Abuse - Travel History History of Recent Travel: No Medications and Allergies Active Medications: Active Medications Sodium Chloride (Ns Flush) 2 ml IV.FLUSH BID LYUDMILA Sodium Chloride (Ns Flush) 2 ml IV.FLUSH PRN PRN PRN Reason: FLUSH AFTER USING IV ACCESS Allergies Allergy/AdvReac Type Severity Reaction Status Date / Time cephalexin Allergy Intermediate Hives Verified 03/31/18 23:04 ciprofloxacin Allergy Intermediate Hives Verified 03/31/18 23:04 Sulfa (Sulfonamide Allergy Intermediate Hives Verified 03/31/18 23:04 Antibiotics) sulfamethoxazole Allergy Intermediate Hives Verified 03/31/18 23:04 trimethoprim Allergy Intermediate Hives Verified 03/31/18 23:04 Home Medications Medication Instructions Recorded Confirmed Type vit,[id number] 1 tab PO DAILY 03/08/18 03/14/18 History [PNV 29-1] Exam Vital signs: Vital Signs 04/11/18 13:04 04/11/18 13:06 04/11/18 13:08 Temperature 98.0 F Pulse Rate 67 Respiratory Rate 18 Blood Pressure 135/77 04/11/18 13:16 04/11/18 13:30 04/11/18 13:46 Temperature Pulse Rate 59 L 72 71 Respiratory Rate Blood Pressure 139/72 140/83 124/64 Intake & Output 04/10/18 04/11/18 04/11/18 18:59 06:59 18:59 Weight 83.915 kg Narrative: GENERAL: Well-nourished, well-developed patient. SKIN: Warm and dry. No rashes, lesions, masses noted HEAD: Normocephalic and atraumatic. EYES: No scleral icterus. No injection or drainage. ENT: No nasal drainage noted. Mucous membranes pink. Airway patent. NECK: Supple, trachea midline. No JVD. CARDIOVASCULAR: Regular rate and rhythm without murmurs, gallops, or rubs. RESPIRATORY: Breath sounds equal bilaterally. No accessory muscle use. BREASTS: Deferred ABDOMEN/GI: Abdomen soft, non-tender, bowel sounds present, no rebound, no guarding Gravid GENITOURINARY: Deferred FHT's: heart tones are in the 130s with moderate long-term variability, good accelerations, no decelerations noted. This reactive NST category 1 heart rate tracing. EXTREMITIES: No cyanosis or edema. BACK: Nontender without obvious deformity. NEUROLOGICAL/psychiatric: Awake and alert x3. Grossly normal memory/affect. Grossly normal range of motion. Cranial nerves II through XII grossly intact. Motor and sensory grossly within normal limits. Five out of 5 muscle strength in all muscle groups. Normal speech. Results - Labs CBC & Chem 7: 04/11/18 13:40 04/11/18 13:40 Labs: Laboratory Results - last 24 hr 04/11/18 13:40 WBC 9.6 RBC 3.49 L Hgb 10.3 L Hct 30.6 L MCV 87.5 MCH 29.4 MCHC 33.6 RDW 13.2 Plt Count 252 MPV 8.8 Assessment and Plan - Plan Assessment/plan: 1. IUP at 37.0 wks 2. Elevated blood pressure: The patient had elevated blood pressure in the office however has had most of her blood pressures here in the normal range. We discussed the evaluation for preeclampsia. 3. Placenta previa 4. Anxiety/depression 5. well-being: Reassuring testing with reactive NST and category 1 heart rate tracing, will continue monitoring 6. History of tobacco use 7. History of CVA with prior per patient report, [facility] records are unavailable 8. History of arthritis 9. Desires sterilization BTL papers signed and charted Discharge Plan - Physicians Team ED Provider: Norma Salinas Primary Care Provider: Primary Care Milly Price - Rxs /Orders / Referrals /Forms Prescriptions: No Action vit,[id number] [PNV 29-1] 29 mg iron- 1 mg Tablet 1 tab PO DAILY - Discharge Instructions Print Language: Portuguese
[2018-04-12] MEDS ORDERED: Citric Acid/Sodium Citrate Liq 30 ML UDC PO SCH (13:30)
[2018-04-12] MEDS ORDERED: Clindamycin 600 mg/NS Premix 600 MG/50 ML PIGGYBACK IV.SIG ONE (14:00)
[2018-04-12] MEDS ORDERED: Clindamycin Inj 600 MG/4 ML Vial ONE (15:51)
[2018-04-12] MEDS ORDERED: fentaNYL Citrate Inj 100 MCG/2 ML Ampul ONE (15:57)
[2018-04-12 16:43] LABS: Cord Arterial Blood HCO3 24.5
[2018-04-12] MEDS ORDERED: Simethicone 80 MG Chew Tablet PO PRN (17:21)
[2018-04-12] MEDS ORDERED: Oxytocin 30 Units/500ml Premix 30 UNITS/500 ML BAG IV.SIG ONE (17:21)
[2018-04-12] MEDS ORDERED: Oxytocin 30 Units/500ml Premix 30 UNITS/500 ML BAG ONE (17:55)
[2018-04-12] MEDS ORDERED: ceFAZolin Inj 2,000 MG in Sodium Chlor 0.9% Inj 80 ML IV.SIG SCH (18:00)
[2018-04-12] MEDS ORDERED: Ketorolac Inj 30 MG/ML (IVP) Vial IV.PUSH ONE (18:07)
[2018-04-12] MEDS ORDERED: Morphine Inj 4 MG/ML Vial IV.PUSH PRN (18:08)
--- NOTE | 2018-04-12 18:31 | P.OP ---
- Preoperative Diagnosis (1) Gestational hypertension affecting second (2) Partial previa (3) 37 weeks gestation of - Postoperative Diagnosis (1) Partial previa (2) Gestational hypertension affecting second (3) 37 weeks gestation of Date of procedure: 04/12/18 Procedure: Primary low transverse section Anesthesia: regional Surgeon: Jaiden Massey MD Estimated blood loss (mL): 1,000 IV fluids (mL): 1,000 Urine output (mL): 100 Operation and Findings: This 37-week intrauterine with gestational hypertension and known partial previa taken to the OR placed in supine position operative table after adequate spinal anesthesia she is prepped draped for abdominal surgery a Pfannenstiel incision was made lower abdomen carried to fascia sharply fascia dissected off the rectus muscle and rectus split the midline peritoneal cavity entered sharply. The bladder blade placed large incision and the visceral peritoneum reflected off the lower uterine segment placed on the bladder blade. A transverse hysterotomy was made extended bluntly bilaterally and we get into the some of the lateral placenta is in the lower uterine segment and had a moderate amount of bleeding but was able to get through that and get the baby delivered at 4:06 PM female 8/ 8 weight 2765 gm. Delayed cord clamping done cord gas obtained was 7.233 cord blood obtained. Placenta manually extracted and sent to pathology. Uterus exteriorized hysterotomy closed running layer 0 chromic followed by imbricating suture same. The hemostasis was achieved with multiple stick ties of [id number] sutures on the incision line but that was achieved hemostasis. The bladder was reapproximated using running layer of 2-0 Vicryl and the uterus elevated blood suctioned cul-de-sac gutters. The fallopian tubes were tied at that time with a grasping of the right tube avascular window identified below the tube and a hemostat passed through and 2 sutures were placed through that window and the tube was tied fore and aft the intervening segment removed. The same was done on the opposite side without difficulty. Both tubes segment sent to pathology. The uterus elevated noted there were one to be hemostatic still it was replaced in the peritoneal cavity. The parietal peritoneum closed running layer of 2-0 Vicryl. Muscle reapproximated with stick ties of chromic. The fascia then closed in running layer 0 Vicryl. The subcutaneous tissues were irrigated copiously with antibiotic solution. That hemostasis achieved meticulously with hemostasis and cautery. And then 0 plain catgut suture used to close the space and 3 3-0 Monocryl used to close subcuticular stitch. Pressure dressing applied. Blood loss thousand cc there were no complications sponge and needle correct x2 the patient recovery in stable condition
[2018-04-12] MEDS: ceFAZolin 2 GM Premix Inj 2 GM/50 ML PIGGYBACK IV.SIG SCH (21:03)
[2018-04-12] MEDS ORDERED: Oxytocin 30 Units/500ml Premix 30 UNITS/500 ML BAG IV.SIG PRN (22:21)
[2018-04-13] MEDS: ceFAZolin 2 GM Premix Inj 2 GM/50 ML PIGGYBACK IV.SIG SCH (03:38)
[2018-04-13 05:50] LABS: Baso % (Auto) 0.2 % (0.0-2.0); Eos % (Auto) 0.1 % (0.0-4.0); Hematocrit 21.8 % (35.0-46.0); Lymph # (Auto) 2.5 th/mm3 (1.0-4.8); Lymph % (Auto) 13.2 % (9.0-44.0); Mean Corpuscular Hemoglobin 28.7 pg (27.0-34.0); Mean Corpuscular Volume 89.5 fL (80.0-100.0); Mean Platelet Volume 8.6 fL (7.0-11.0); Mono # (Auto) 1.9 th/mm3 (0.0-0.9); Neut # (Auto) 14.4 th/mm3 (1.8-7.7); Neut % (Auto) 76.5 % (16.0-70.0); Platelet Count 223 th/mm3 (150-450); Red Blood Count 2.43 mil/mm3 (4.00-5.30); White Blood Count 18.8 th/mm3 (4.0-11.0)
--- NOTE | 2018-04-13 08:10 | P.PNOB ---
Subjective Post op day: 1 Interval history: Postoperative day # 1 Afebrile with stable vitals overnight. Incision not draining. Decreased lochia. Denies dysuria. Appetite good. No nausea or vomiting. Positive flatus. Ambulating well. Denies calf pain or shortness of breath. Otherwise, she is doing well this morning and has no other complaints. She denies headache, nausea, emesis, lightheadedness, and visual changes. Objective Vital Signs/I&O: Vital Signs 04/12/18 17:35 04/12/18 17:40 04/12/18 17:48 Temperature 97.1 F L Pulse Rate 87 88 84 Respiratory Rate 16 16 16 Blood Pressure 119/57 L 130/64 04/12/18 18:10 04/12/18 18:15 04/12/18 20:25 Temperature 97.6 F 97.9 F Pulse Rate 66 70 75 Respiratory Rate 16 16 18 Blood Pressure 131/66 132/63 133/87 04/12/18 20:45 04/13/18 00:09 04/13/18 03:51 Temperature 97.8 F Pulse Rate 72 Respiratory Rate 18 Blood Pressure 123/76 04/13/18 04:25 Temperature 97.6 F Pulse Rate 93 H Respiratory Rate Blood Pressure 122/69 Intake & Output 04/12/18 04/13/18 04/13/18 18:59 06:59 18:59 Intake Total 50 / 50 Balance 50 / 50 Intake: IV 50 / 50 Ancef 2 GM Premix Inj 2 gm In 50 / 50 50 ml @ 200 mls/hr IV.SIG Q8H [facility] Rx#:[id number] Result Diagrams: 04/13/18 03:50 04/12/18 05:00 Objective Remarks: General: Alert, well appearing, in no acute distress Skin: Warm and dry HEENT: Atraumatic. Moist mucus membranes Cardiac: Regular rate and rhythm without murmur Pulmonary: No increased work of breathing. Clear to auscultation bilaterally with good air movement. Abdominal: Non-tender. + Bowel sounds. uterus firm and below the umbilicus. Incision is clean, dry and intact. Extremities: 2+ pedal pulses, no edema, no calf tenderness Medications and IVs: Active Medications Acetaminophen/Butalbital/Caffeine (Fioricet 50-325-40) 1 tab PO Q6H PRN PRN Reason: HEADACHE Last Admin: 04/11/18 16:09 Dose: 1 tab Citric Acid/Sodium Citrate (Sodium Citrate/Citric Acid Liq) 30 ml PO ACUTE CARE NURSING ASSISTANT [facility] Stop: 04/16/18 13:29 Last Admin: 04/12/18 14:55 Dose: 30 ml Diphtheria/Pertussis/Tetanus Vacc (Boostrix Vaccine Inj) 0.5 ml IM .ONCE ONE Stop: 04/13/18 16:01 Hydroxyzine Pamoate (Vistaril) 75 mg PO Q6H PRN PRN Reason: ANXIETY Lactated Ringer's (Lr 1000 Ml Inj) 1,000 mls @ 100 mls/hr IV.SIG .Q10H [facility] Last Admin: 04/12/18 18:52 Dose: Not Given Lactated Ringer's (Lr 1000 Ml Inj) 1,000 mls @ 150 mls/hr IV.CONT .Q6H40M [facility] Last Admin: 04/13/18 03:37 Dose: Not Given Lactated Ringer's (Lr 1000 Ml Inj) 1,000 mls @ 100 mls/hr IV.CONT .Q10H [facility] Stop: 04/13/18 18:20 Last Admin: 04/13/18 01:06 Dose: 100 mls/hr Oxytocin (Pitocin 30 Units/Ns 500 Ml Premix) 30 units in 500 mls @ 100 mls/hr IV.SIG UNSCH PRN PRN Reason: Heavy bleeding Measles/Mumps/Rubella Vaccine Live (M-M-R Ii Vaccine Inj) 0.5 ml SQ .ONCE ONE Stop: 04/13/18 16:01 Morphine Sulfate (Morphine Inj) 4 mg IV.PUSH Q4H PRN PRN Reason: PAIN SCALE 6 TO 10 Ondansetron HCl (Zofran Inj) 4 mg IV.PUSH Q6H PRN PRN Reason: NAUSEA OR VOMITING Oxycodone/Acetaminophen (Percocet 5/325 Mg) 2 tab PO Q4H PRN PRN Reason: PAIN SCALE 6 TO 10 Last Admin: 04/13/18 05:30 Dose: 2 tab Oxycodone/Acetaminophen (Percocet 5/325 Mg) 1 tab PO Q4H PRN PRN Reason: PAIN SCALE 3 TO 5 Senna/Docusate Sodium (Shannon-Colace) 2 tab PO Q12H PRN PRN Reason: CONSTIPATION Simethicone (Mylicon Chew) 80 mg PO QID PRN PRN Reason: FLATULENCE Sodium Chloride (Ns Flush) 2 ml IV.FLUSH BID [facility] Last Admin: 04/13/18 00:48 Dose: Not Given Sodium Chloride (Ns Flush) 2 ml IV.FLUSH PRN PRN PRN Reason: FLUSH AFTER USING IV ACCESS Assessment and Plan - Diagnosis (1) Preeclampsia Code(s): O14.90 - Unspecified pre-eclampsia, unspecified trimester Status: Acute (2) Anemia Code(s): D64.9 - Anemia, unspecified Status: Acute (3) 37 weeks gestation of Code(s): Z3A.37 - 37 weeks gestation of Status: Acute - Plan 32 year old female who is POD# 1 s/p delivery (placenta previa, preeclampsia) -24h urine protein was 626 -Continue routine care -Percocet and Motrin PRN pain -Encouraged OOB. Advised pelvic rest for 6 wks. Will need a follow up appt. in 1 wk for incision check - Control: BTL performed -Anticipate DC home tomorrow or the next day Preeclampsia: -No BP over 160 and asymptomatic at this time -Will continue to monitor and consider treatment if she continues to be hypertensive -Will need close follow-up with OB as an outpatient Anemia: -Hemiglobin of 7.0, down from 10.9 before delivery -Patient is asymptomatic -Iron supplementation -Will recheck H&H if she becomes symptomatic Care discussed with: Dr. Massey
[2018-04-13] MEDS: Ferrous Sulfate 325 MG Tablet PO SCH (12:59)
[2018-04-13] MEDS ORDERED: Morphine Inj 4 MG/ML Vial IV.PUSH PRN (14:28)
[2018-04-13 14:56] LABS: Hematocrit 22.1 % (35.0-46.0); Hemoglobin 7.1 gm/dL (11.6-15.3)
[2018-04-13] MEDS ORDERED: Diphtheria/Tetanus/Pertussis Vaccine Inj 0.5 ML Syringe IM ONE (16:00)
[2018-04-13] MEDS ORDERED: Measles/Mumps/Rubella Vaccine Inj 0.5 ML Vial SQ ONE (16:00)
[2018-04-13] MEDS: Senna/Docusate Sodium 8.6/50 MG Tablet PO PRN (18:18)
--- NOTE | 2018-04-14 09:12 | P.PNOB ---
Subjective Post op day: 2 Interval history: Patient's pain is well-controlled. Patient reports eating and drinking without any nausea or vomiting. Patient reports minimal bleeding. Patient has passed gas but no bowel movements. Patient is walking without lower extremity pain or shortness of breath. Objective Vital Signs/I&O: Vital Signs 04/13/18 12:00 04/13/18 17:30 04/13/18 20:00 Temperature 98.2 F 98.1 F 98.0 F Pulse Rate 81 82 70 Respiratory Rate 18 Blood Pressure 116/69 131/67 141/78 H Result Diagrams: 04/13/18 14:36 04/12/18 05:00 Objective Remarks: GENERAL: Well-nourished, well-developed patient. CARDIOVASCULAR: Regular rate and rhythm without murmurs, gallops, or rubs. RESPIRATORY: Breath sounds equal bilaterally. No accessory muscle use. ABDOMEN/GI: Abdomen soft, non-tender, bowel sounds present. Incision: Clean, dry and intact. Fundus: Firm, non-tender at umbilicus. GENITOURINARY: Light to moderate bleeding. EXTREMITIES: No cyanosis or edema, non-tender, without signs of DVT. Medications and IVs: Active Medications Acetaminophen/Butalbital/Caffeine (Fioricet 50-325-40) 1 tab PO Q6H PRN PRN Reason: HEADACHE Last Admin: 04/11/18 16:09 Dose: 1 tab Ascorbic Acid (Vitamin C) 500 mg PO DAILY [facility] Citric Acid/Sodium Citrate (Sodium Citrate/Citric Acid Liq) 30 ml PO [employer] [facility] Stop: 04/16/18 13:29 Last Admin: 04/12/18 14:55 Dose: 30 ml Ferrous Sulfate (Ferosul) 325 mg PO DAILY [facility] Last Admin: 04/13/18 12:59 Dose: 325 mg Hydroxyzine Pamoate (Vistaril) 75 mg PO Q6H PRN PRN Reason: ANXIETY Lactated Ringer's (Lr 1000 Ml Inj) 1,000 mls @ 100 mls/hr IV.SIG .Q10H [facility] Last Admin: 04/14/18 07:49 Dose: Not Given Lactated Ringer's (Lr 1000 Ml Inj) 1,000 mls @ 150 mls/hr IV.CONT .Q6H40M [facility] Last Admin: 04/14/18 07:50 Dose: Not Given Oxytocin (Pitocin 30 Units/Ns 500 Ml Premix) 30 units in 500 mls @ 100 mls/hr IV.SIG UNSCH PRN PRN Reason: Heavy bleeding Ibuprofen (Motrin) 800 mg PO Q8H PRN PRN Reason: PAIN SCALE 1 TO 10 Last Admin: 04/14/18 02:19 Dose: 800 mg Morphine Sulfate (Morphine Inj) 4 mg IV.PUSH Q4H PRN PRN Reason: PAIN SCALE 6-10; Ondansetron HCl (Zofran Inj) 4 mg IV.PUSH Q6H PRN PRN Reason: NAUSEA OR VOMITING Oxycodone/Acetaminophen (Percocet 5/325 Mg) 1 tab PO Q4HR PRN PRN Reason: SEE DOSE INSTRUCTIONS Last Admin: 04/14/18 06:52 Dose: 1 tab Oxycodone/Acetaminophen (Percocet 5/325 Mg) 1 tab PO Q4H [facility] Last Admin: 04/14/18 06:52 Dose: 1 tab Senna/Docusate Sodium (Shannon-Colace) 2 tab PO Q12H PRN PRN Reason: CONSTIPATION Last Admin: 04/13/18 18:18 Dose: 2 tab Simethicone (Mylicon Chew) 80 mg PO QID PRN PRN Reason: FLATULENCE Sodium Chloride (Ns Flush) 2 ml IV.FLUSH BID [facility] Last Admin: 04/14/18 02:33 Dose: Not Given Sodium Chloride (Ns Flush) 2 ml IV.FLUSH PRN PRN PRN Reason: FLUSH AFTER USING IV ACCESS Assessment and Plan - Diagnosis (1) Preeclampsia Code(s): O14.90 - Unspecified pre-eclampsia, unspecified trimester Status: Acute (2) Anemia Code(s): D64.9 - Anemia, unspecified Status: Acute (3) delivery delivered Code(s): O82 - Encounter for delivery without indication Status: Acute - Plan 32 year old female who is POD# 2 s/p delivery (placenta previa, preeclampsia) -24h urine protein was 626 -Continue routine care -Percocet and Motrin PRN pain -Encouraged OOB. Advised pelvic rest for 6 wks. Will need a follow up appt. in 1 wk for incision check - Control: BTL performed -Anticipate DC home tomorrow Preeclampsia: -No BP over 160 and asymptomatic at this time -Will continue to monitor and consider treatment if she continues to be hypertensive -Will need close follow-up with OB as an outpatient Anemia: -Hemiglobin of 7.0, down from 10.9 before delivery -Patient is asymptomatic -Iron supplementation -Will recheck H&H if she becomes symptomatic
[2018-04-14] MEDS: Ascorbic Acid 500 MG Tablet PO SCH (09:13)
[2018-04-14] MEDS: Senna/Docusate Sodium 8.6/50 MG Tablet PO PRN ×2 (09:13→21:48)
[2018-04-14] MEDS: Ferrous Sulfate 325 MG Tablet PO SCH (09:13)
[2018-04-14] MEDS ORDERED: ALPRAZolam 0.25 MG Tablet PO ONE (20:24)
--- NOTE | 2018-04-15 07:34 | P.PNOB ---
Subjective Post op day: 3 Interval history: Patient's pain is well-controlled. Patient reports eating and drinking without any nausea or vomiting. Patient reports minimal bleeding. Patient has passed gas but no bowel movements. Patient is walking without lower extremity pain or shortness of breath. Objective Vital Signs/I&O: Vital Signs 04/14/18 08:00 04/14/18 20:00 04/14/18 23:57 Temperature 97.7 F 98.1 F Pulse Rate 73 89 76 Respiratory Rate 20 20 18 Blood Pressure 139/78 153/89 H 155/92 H Result Diagrams: 04/13/18 14:36 04/12/18 05:00 Objective Remarks: GENERAL: Well-nourished, well-developed patient. CARDIOVASCULAR: Regular rate and rhythm without murmurs, gallops, or rubs. RESPIRATORY: Breath sounds equal bilaterally. No accessory muscle use. ABDOMEN/GI: Abdomen soft, non-tender, bowel sounds present. Incision: Clean, dry and intact. Fundus: Firm, non-tender at umbilicus. GENITOURINARY: Light to moderate bleeding. EXTREMITIES: No cyanosis or edema, non-tender, without signs of DVT. Medications and IVs: Active Medications Acetaminophen/Butalbital/Caffeine (Fioricet 50-325-40) 1 tab PO Q6H PRN PRN Reason: HEADACHE Last Admin: 04/11/18 16:09 Dose: 1 tab Ascorbic Acid (Vitamin C) 500 mg PO DAILY [facility] Last Admin: 04/14/18 09:13 Dose: 500 mg Citric Acid/Sodium Citrate (Sodium Citrate/Citric Acid Liq) 30 ml PO COMPENSATION SPECIALIST [facility] Stop: 04/16/18 13:29 Last Admin: 04/12/18 14:55 Dose: 30 ml Ferrous Sulfate (Ferosul) 325 mg PO DAILY [facility] Last Admin: 04/14/18 09:13 Dose: 325 mg Hydroxyzine Pamoate (Vistaril) 75 mg PO Q6H PRN PRN Reason: ANXIETY Lactated Ringer's (Lr 1000 Ml Inj) 1,000 mls @ 100 mls/hr IV.SIG .Q10H [facility] Last Admin: 04/14/18 20:50 Dose: Not Given Lactated Ringer's (Lr 1000 Ml Inj) 1,000 mls @ 150 mls/hr IV.CONT .Q6H40M [facility] Last Admin: 04/15/18 04:26 Dose: Not Given Oxytocin (Pitocin 30 Units/Ns 500 Ml Premix) 30 units in 500 mls @ 100 mls/hr IV.SIG UNSCH PRN PRN Reason: Heavy bleeding Ibuprofen (Motrin) 800 mg PO Q8H PRN PRN Reason: PAIN SCALE 1 TO 10 Last Admin: 04/15/18 02:55 Dose: 800 mg Morphine Sulfate (Morphine Inj) 4 mg IV.PUSH Q4H PRN PRN Reason: PAIN SCALE 6-10; Ondansetron HCl (Zofran Inj) 4 mg IV.PUSH Q6H PRN PRN Reason: NAUSEA OR VOMITING Oxycodone/Acetaminophen (Percocet 5/325 Mg) 1 tab PO Q4HR PRN PRN Reason: SEE DOSE INSTRUCTIONS Last Admin: 04/15/18 06:35 Dose: 1 tab Oxycodone/Acetaminophen (Percocet 5/325 Mg) 1 tab PO Q4H [facility] Last Admin: 04/15/18 06:35 Dose: 1 tab Senna/Docusate Sodium (Shannon-Colace) 2 tab PO Q12H PRN PRN Reason: CONSTIPATION Last Admin: 04/14/18 21:48 Dose: 2 tab Simethicone (Mylicon Chew) 80 mg PO QID PRN PRN Reason: FLATULENCE Sodium Chloride (Ns Flush) 2 ml IV.FLUSH BID [facility] Last Admin: 04/15/18 01:28 Dose: Not Given Sodium Chloride (Ns Flush) 2 ml IV.FLUSH PRN PRN PRN Reason: FLUSH AFTER USING IV ACCESS Assessment and Plan - Diagnosis (1) Preeclampsia Code(s): O14.90 - Unspecified pre-eclampsia, unspecified trimester Status: Acute (2) Anemia Code(s): D64.9 - Anemia, unspecified Status: Acute (3) delivery delivered Code(s): O82 - Encounter for delivery without indication Status: Acute - Plan 32 year old female who is POD# 3 s/p delivery (placenta previa, preeclampsia) -24h urine protein was 626 -Continue routine care -Percocet and Motrin PRN pain -Encouraged OOB. Advised pelvic rest for 6 wks. Will need a follow up appt. in 1 wk for incision check - Control: BTL performed -Anticipate DC home tomorrow Preeclampsia: -No BP over 160 and asymptomatic at this time, BPs normal over the last 24 hours with exception of mildly elevated BPs at 150s over 80s last night while agitated -Will need close follow-up with OB as an outpatient -We will follow up with me as a PCP as well Anemia: -Asymptomatic -Hemiglobin of 7.0, down from 10.9 before delivery, stable at 7.1 yesterday -Iron supplementation on d/c -
[2018-04-15] MEDS: Ferrous Sulfate 325 MG Tablet PO SCH (08:25)
[2018-04-15] MEDS: Ascorbic Acid 500 MG Tablet PO SCH (08:25)
[2018-04-15] MEDS: Senna/Docusate Sodium 8.6/50 MG Tablet PO PRN (08:26)
== END 2018-04-15 13:57 | disposition home or self-care (01) ==
LOC: H2E 12:15 → HOBED 12:15 → H2E 19:36 → H1EA 04-12 18:52
PROVIDERS: ADMIT Obstetrics & Gynecology; ATTEND Obstetrics & Gynecology